=== PATIENT | female | born 1990 | race Caucasian/White ===

== ENCOUNTER 2017-09-26 02:44 | Emergency (ER) | payer OTHER ==
[~2017-09-26] VITALS: Ht 160 cm; Wt 71.2 kg
[~2017-09-26 02:44] MED LIST: AMITRIPTYLINE H25 M4; APAP650 PO; CELEXA 10 MG TA10 M1 PO; CELEXA20 MG PO; CIPROFLOXACIN500 M1 PO; CLONAZEPAM 1 MG1 M1; DELTASONE20 MG PO; EFFEXOR 5050 MG/1 T1 PO; EPIPEN 2-P0.3 MG/0.3 IM; FLONASE 0.05%50 MCG NASAL; HYDROCODONE-AP1 EAC6 PO; IBUPROFEN 400400 M2 PO; IBUPROFEN 800800 M1 PO; IBUPROFEN 800800 MG PO; NAPROSYN500 MG PO; NOHOMEMEDICATIONS; NORCO 5-325 TA1 EACH PO; NORFLEX100 MG PO; PENICILLIN VK500 MG PO; PREDNISONE 20 M20 M1 PO; PRENATAL; ROBAXIN500 MG PO; TRINATE TABLET1 TAB PO; ULTRAM 50MG TAB50 MG PO; VENTOLIN HFA 1818 GM INH; VICODIN 5-5001 EACH PO; VICOPROFEN 2001 EAC1 PO; WELLBUTRIN 75 M75 M1 PO; WELLBUTRIN SR150 MG; XANAX 0.5 MG0.5 MG PO; ZOFRAN ODT4 M1 PO; ZPAK PO
[2017-09-26 03:30] LABS: HEMATOCRIT 40.2 % (37.0-47.0); HEMOGLOBIN 13.7 gm/dL (12.0-15.0); MCH 29.8 pg (26.0-34.0); MCHC 34.1 g/dL (28.0-37.0); MCV 87.2 fL (80.0-100.0); RBC 4.61 mil/uL (4.20-5.00); WBC 7.4 thou/uL (4.0-11.0)
[2017-09-26 03:33] LABS: CALCIUM 9.1 mg/dL (8.5-10.1); CREATININE 0.7 mg/dL (0.6-1.0); POTASSIUM 3.5 mmol/L (3.5-5.1)
[2017-09-26 06:09] LABS: URINE BILIRUBIN 1+ (Negative); URINE BLOOD NEGATIVE (Negative); URINE CLARITY CLEAR; URINE COLOR YELLOW; URINE GLUCOSE-RANDOM* NEGATIVE (Negative); URINE KETONES NEGATIVE (Negative); URINE LEUKOCYTES-REFLEX NEGATIVE (Negative); URINE NITRITE-REFLEX NEGATIVE (Negative); URINE PROTEIN (DIPSTICK) NEGATIVE (Negative); URINE SPECIFIC GRAVITY >= 1.030 (1.005-1.035); URINE UROBILINOGEN 0.2 E.U./dl (0.2-1.0)
[2017-09-26 06:13] LABS: ICTOTEST (BILI CONFIRMATORY) Negative (Negative)
[2017-09-26 08:46] VITALS: BP 115/67
[2017-09-27] MEDS ORDERED: PERCOCET 5-3251 EACH PO (02:53)
[2017-11-29] MEDS ORDERED: LEXAPRO 10 MG T10 M2 PO (13:31)
[2017-11-29] MEDS ORDERED: NEURONTIN 300300 M1 PO (13:32)
[2017-11-29] MEDS ORDERED: CLONAZEPAM 0.50.5 M1 PO (13:32)
[2017-11-29] MEDS ORDERED: OXYCONTIN10 M1 PO (13:32)
[2017-11-29] MEDS ORDERED: ADDERALL 10 MG10 MG PO (13:32)
[2017-11-29] MEDS ORDERED: ASPIRIN325 PO (13:33)
[2018-02-19] MEDS ORDERED: VENTOLIN HFA 1818 GM INH ×2 (09:53→10:21)
[2018-02-19] MEDS ORDERED: NORCO 5-325 TA1 EACH PO (10:21)
[2018-02-19] MEDS ORDERED: PREDNISONE 20 M20 M1 PO (10:21)
[2018-04-08] MEDS ORDERED: NEURONTIN 300300 M1 PO (17:14)
[2018-04-08] MEDS ORDERED: BACTRIM DS TAB1 EACH PO (17:55)
[2018-04-08] MEDS ORDERED: HYDROCODON-ACE1 EAC7 PO (17:55)
[2018-05-05] MEDS ORDERED: CLONAZEPAM 1 MG1 M1 PO (03:58)
== END 2017-09-26 08:47 | disposition home or self-care (01) ==
LOC: ER 02:44
PROVIDERS: Emergency Medicine
DX: R10.2 Pelvic and perineal pain (principal); R10.9 Unspecified abdominal pain; J45.909 Unspecified asthma, uncomplicated; Z98.890 Other specified postprocedural states; Z88.8 Allergy status to other drugs, medicaments and biological substances; Z91.010 Allergy to peanuts; Z88.6 Allergy status to analgesic agent

== ENCOUNTER 2017-09-27 02:37 | Emergency (ER) | payer OTHER ==
[~2017-09-27] VITALS: Ht 160 cm; Wt 70.3 kg
[2017-09-27] MEDS ORDERED: PERCOCET 5-3251 EACH PO (02:53)
[2017-09-27 03:28] LABS: ABSOLUTE NEUTROPHILS 2.2 thou/uL (1.4-8.2); CALCIUM 8.6 mg/dL (8.5-10.1); CREATININE 0.6 mg/dL (0.6-1.0); EOSINOPHILS 8.6 % (0.0-3.0); HEMATOCRIT 37.3 % (37.0-47.0); HEMOGLOBIN 12.5 gm/dL (12.0-15.0); LYMPHOCYTES 42.4 % (24.0-44.0); MCH 29.6 pg (26.0-34.0); MCHC 33.5 g/dL (28.0-37.0); MCV 88.2 fL (80.0-100.0); MONOCYTES 9.4 % (1.0-8.0); PLATELET COUNT 350 thou/uL (150-400); POLYS 38.6 % (36.0-66.0); RBC 4.23 mil/uL (4.20-5.00); WBC 5.8 thou/uL (4.0-11.0)
[2017-09-27 03:34] LABS: ALBUMIN 3.4 g/dL (3.4-5.0); TOTAL BILIRUBIN 0.1 mg/dL (<0.1-1.0); TOTAL PROTEIN 6.9 g/dL (6.4-8.2)
[2017-09-27 03:39] LABS: URINE BILIRUBIN NEGATIVE (Negative); URINE BLOOD NEGATIVE (Negative); URINE CLARITY CLEAR; URINE COLOR YELLOW; URINE GLUCOSE-RANDOM* NEGATIVE (Negative); URINE KETONES NEGATIVE (Negative); URINE LEUKOCYTES-REFLEX NEGATIVE (Negative); URINE NITRITE-REFLEX NEGATIVE (Negative); URINE PROTEIN (DIPSTICK) NEGATIVE (Negative); URINE SPECIFIC GRAVITY >= 1.030 (1.005-1.035); URINE UROBILINOGEN 0.2 E.U./dl (0.2-1.0)
[2017-09-27 03:47] LABS: AMP/METHAMP Negative (Negative); BARBITURATES POSITIVE (Negative); BENZODIAZEPINES Negative (Negative); COCAINE Negative (Negative); METHADONE Negative (Negative); OPIATES POSITIVE (Negative); PCP Negative (Negative)
[2017-09-27 03:57] VITALS: BP 101/69
[2017-11-29] MEDS ORDERED: LEXAPRO 10 MG T10 M2 PO (13:31)
[2017-11-29] MEDS ORDERED: CLONAZEPAM 0.50.5 M1 PO (13:32)
[2017-11-29] MEDS ORDERED: OXYCONTIN10 M1 PO (13:32)
[2017-11-29] MEDS ORDERED: ADDERALL 10 MG10 MG PO (13:32)
[2017-11-29] MEDS ORDERED: NEURONTIN 300300 M1 PO (13:32)
[2017-11-29] MEDS ORDERED: ASPIRIN325 PO (13:33)
[2018-02-19] MEDS ORDERED: VENTOLIN HFA 1818 GM INH ×2 (09:53→10:21)
[2018-02-19] MEDS ORDERED: PREDNISONE 20 M20 M1 PO (10:21)
[2018-02-19] MEDS ORDERED: NORCO 5-325 TA1 EACH PO (10:21)
[2018-04-08] MEDS ORDERED: NEURONTIN 300300 M1 PO (17:14)
[2018-04-08] MEDS ORDERED: HYDROCODON-ACE1 EAC7 PO (17:55)
[2018-04-08] MEDS ORDERED: BACTRIM DS TAB1 EACH PO (17:55)
[2018-05-05] MEDS ORDERED: CLONAZEPAM 1 MG1 M1 PO (03:58)
== END 2017-09-27 03:40 | disposition left against medical advice (07) ==
LOC: ER 02:37
PROVIDERS: Emergency Medicine
DX: R10.31 Right lower quadrant pain (principal); R10.32 Left lower quadrant pain; J45.909 Unspecified asthma, uncomplicated; Z90.89 Acquired absence of other organs; Z98.890 Other specified postprocedural states; Z90.49 Acquired absence of other specified parts of digestive tract; Z88.6 Allergy status to analgesic agent; Z91.010 Allergy to peanuts; Z88.8 Allergy status to other drugs, medicaments and biological substances